=== PATIENT | male | born 1990 | race Caucasian/White ===

== ENCOUNTER 2020-04-06 21:50 | Emergency (ER) | payer OTHER ==
[2020-04-06 22:02] VITALS: BP 144/82; PULSE 116; RESP 19; TEMP 98.4
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
[2020-04-06] MEDS ORDERED: LIDOCAINE 5% PATCH TOPICAL STA (22:54)
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
== END 2020-04-06 23:12 | disposition home or self-care (01) ==
LOC: EC 21:50
DX: R07.81 Pleurodynia (principal); F17.200 Nicotine dependence, unspecified, uncomplicated; W51.XXXA Accidental striking against or bumped into by another person, initial encounter; Y93.72 Activity, wrestling
CPT/HCPCS: 99283